=== PATIENT | female | born 1970 | race Caucasian/White ===

== ENCOUNTER 2017-12-13 14:51 | Emergency (ER) | payer OTHER ==
[~2017-12-13] VITALS: Ht 170.2 cm; Wt 47.2 kg
[~2017-12-13 14:51] MED LIST: Ativan0.5 MG PO; BIRTH CONTROL PILLS; CIPR500 PO; CYCL10 PO; FAMO20 PO; HYDACE5 PO; IBUP400 PO; IBUPROFEN; NAPR375 PO; OXYACE5T PO; PHENA200; PHENA200 PO; POTCHL20ER PO; PRED10 PO; PROM25 PO; TRAM50 PO
[2017-12-13] MEDS ORDERED: Cyclobenzaprine5 MG PO (15:05)
[2017-12-13] MEDS ORDERED: Norco 5-325 Ta1 EACH PO (15:59)
== END 2017-12-13 16:08 | disposition home or self-care (01) ==
LOC: ER 14:51
DX: S70.12XA Contusion of left thigh, initial encounter (principal); Z88.0 Allergy status to penicillin; Z88.2 Allergy status to sulfonamides; Z88.8 Allergy status to other drugs, medicaments and biological substances; F17.210 Nicotine dependence, cigarettes, uncomplicated; W01.0XXA Fall on same level from slipping, tripping and stumbling without subsequent striking against object, initial encounter
CPT/HCPCS: 73552; 99283

== ENCOUNTER → 2019-04-05 | Outpatient (CLI) | payer OTHER ==
[~2019-04-05] MED LIST changes: +Cyclobenzaprine5 MG PO; +Norco 5-325 Ta1 EACH PO
[2019-04-06 11:14] LABS: Candida species (DNA Probe) Negative (NEGATIVE); G. vaginalis (DNA Probe) Positive (NEGATIVE); T. vaginalis (DNA Probe) Negative (NEGATIVE)
== END ==
LOC: LAB SHORT 17:12 → LAB 17:12
PROVIDERS: Nurse Practitioner Family
DX: B37.9 Candidiasis, unspecified (principal)
CPT/HCPCS: 87480; 87510; 87660

== ENCOUNTER 2019-09-09 09:07 | Day surgery (SDC) | payer OTHER ==
[~2019-09-09] VITALS: Ht 170.2 cm; Wt 45.2 kg
== END 2019-09-09 11:05 | disposition home or self-care (01) ==
LOC: ORSCSDS 09:07
PROVIDERS: Surgery
PROC: 0DBN8ZX Excision of Sigmoid Colon, Via Natural or Artificial Opening Endoscopic, Diagnostic (ICD-10-PCS; principal; 2019-09-09 11:00)
DX: K62.5 Hemorrhage of anus and rectum (principal); K63.5 Polyp of colon; K64.2 Third degree hemorrhoids; K21.9 Gastro-esophageal reflux disease without esophagitis; F17.210 Nicotine dependence, cigarettes, uncomplicated
CPT/HCPCS: 88305; J2704; J7120

== ENCOUNTER 2019-09-21 13:01 | Emergency (ER) | payer OTHER ==
[~2019-09-21] VITALS: Ht 170.2 cm; Wt 47.2 kg
[2019-09-21] MEDS ORDERED: Norco 5-325 Ta1 EACH PO (14:36)
== END 2019-09-21 15:14 | disposition home or self-care (01) ==
LOC: ER 13:01
DX: S20.221A Contusion of right back wall of thorax, initial encounter (principal); F17.200 Nicotine dependence, unspecified, uncomplicated; Z88.0 Allergy status to penicillin; Z88.2 Allergy status to sulfonamides; Z88.8 Allergy status to other drugs, medicaments and biological substances; W18.39XA Other fall on same level, initial encounter
CPT/HCPCS: 71101; 99283-25

== ENCOUNTER 2019-12-12 16:22 | Emergency (ER) | payer OTHER ==
[~2019-12-12] VITALS: Ht 170.2 cm; Wt 49.9 kg
[2019-12-12 16:47] LABS: BASOPHILS ABSOLUTE AUTO 0.05 K/mm3 (0.00-0.23); BASOPHILS PERCENT AUTO 1 % (0-2); EOSINOPHILS ABSOLUTE AUTO 0.19 K/mm3 (0.00-0.68); EOSINOPHILS PERCENT AUTO 3 % (0-6); Hematocrit 38.6 % (33.0-51.0); Hemoglobin 12.9 g/dL (11.5-16.0); IMMATURE GRAN ABSOLUTE AUTO 0.01 K/mm3 (0.00-0.10); IMMATURE GRAN PERCENT AUTO 0 % (0-1); LYMPHOCYTES ABSOLUTE AUTO 2.89 K/mm3 (0.84-5.20); LYMPHOCYTES PERCENT AUTO 42 % (21-46); MONOCYTES ABSOLUTE AUTO 0.39 K/mm3 (0.16-1.47); MONOCYTES PERCENT AUTO 6 % (4-13); Mean Corpuscular HGB 30.8 pg (26.0-34.0); Mean Corpuscular HGB Conc 33.4 g/dL (31.5-36.5); Mean Corpuscular Volume 92 fL (80-100); Mean Platelet Volume 8.9 fL (9.1-12.4); NEUTROPHILS ABSOLUTE AUTO 3.38 K/mm3 (1.96-9.15); NEUTROPHILS PERCENT AUTO 49 % (41-73); Platelet Count 339 K/mm3 (150-400); RDW Coefficient Variation 13.1 % (11.7-14.2); RDW Standard Deviation 44.2 fL (35.1-46.3); Red Blood Cell Count 4.19 M/mm3 (3.80-5.20); White Blood Cell Count 6.91 K/mm3 (4.00-11.30)
[2019-12-12 17:10] LABS: Alanine Aminotransfer (ALT/SGP 35 U/L (12-78); Albumin, Blood 4.3 g/dL (3.4-5.0); Albumin/Globulin Ratio 1.1 (0.8-1.8); Alk Phos 49 U/L (50-136); Anion Gap 6 mmol/L (6-16); Aspartate Aminotrans (AST/SGOT 27 U/L (12-37); Bilirubin, Total 0.2 mg/dL (0.1-1.0); Blood Urea Nitrogen 12 mg/dL (8-24); Bun/Creatinine Ratio 35.6 (12.0-20.0); CO2, Blood 25 mmol/L (21-32); Calcium, Blood 8.8 mg/dL (8.5-10.1); Chloride, Blood 109 mmol/L (98-108); Creatinine, Blood 0.34 mg/dL (0.40-1.00); Ethanol (Alcohol), Blood, Med 355 mg/dL; Globulin, Blood 3.9 g/dL (2.2-4.0); Glomerular Filtration Rate >60 (60-); Glucose, Blood 102 mg/dL (70-99); Potassium, Blood 3.7 mmol/L (3.5-5.5); Sodium, Blood 140 mmol/L (136-145); Total Protein, Blood 8.2 g/dL (6.4-8.2); Troponin I <0.015 ng/mL (0.000-0.040)
== END 2019-12-12 19:26 | disposition home or self-care (01) ==
LOC: ER 16:22
PROVIDERS: Physician Assistant
DX: R00.2 Palpitations (principal); F10.129 Alcohol abuse with intoxication, unspecified; F17.210 Nicotine dependence, cigarettes, uncomplicated; Z88.0 Allergy status to penicillin; Z88.8 Allergy status to other drugs, medicaments and biological substances; Z88.2 Allergy status to sulfonamides; Y90.8 Blood alcohol level of 240 mg/100 ml or more
CPT/HCPCS: 36415; 71046; 80053; 84484; 85025; 93005; 93010; 96360; 99284-25; G0480; J7030

== ENCOUNTER 2020-02-03 20:26 | Emergency (ER) | payer OTHER ==
[~2020-02-03] VITALS: Ht 170.2 cm; Wt 49.9 kg
[2020-02-03] MEDS ORDERED: METO25ER PO (20:58)
[2020-02-03 21:12] LABS: BASOPHILS ABSOLUTE AUTO 0.06 K/mm3 (0.00-0.23); BASOPHILS PERCENT AUTO 1 % (0-2); EOSINOPHILS ABSOLUTE AUTO 0.14 K/mm3 (0.00-0.68); EOSINOPHILS PERCENT AUTO 2 % (0-6); Hematocrit 39.3 % (33.0-51.0); Hemoglobin 12.8 g/dL (11.5-16.0); IMMATURE GRAN ABSOLUTE AUTO 0.02 K/mm3 (0.00-0.10); IMMATURE GRAN PERCENT AUTO 0 % (0-1); LYMPHOCYTES ABSOLUTE AUTO 3.47 K/mm3 (0.84-5.20); LYMPHOCYTES PERCENT AUTO 39 % (21-46); MONOCYTES ABSOLUTE AUTO 0.53 K/mm3 (0.16-1.47); MONOCYTES PERCENT AUTO 6 % (4-13); Mean Corpuscular HGB 30.3 pg (26.0-34.0); Mean Corpuscular HGB Conc 32.6 g/dL (31.5-36.5); Mean Corpuscular Volume 93 fL (80-100); NEUTROPHILS PERCENT AUTO 53 % (41-73); Platelet Count 342 K/mm3 (150-400); RDW Coefficient Variation 12.8 % (11.7-14.2); RDW Standard Deviation 43.7 fL (35.1-46.3); Red Blood Cell Count 4.22 M/mm3 (3.80-5.20); White Blood Cell Count 8.92 K/mm3 (4.00-11.30)
[2020-02-03 21:22] LABS: Alanine Aminotransfer (ALT/SGP 40 U/L (12-78); Albumin, Blood 4.2 g/dL (3.4-5.0); Alk Phos 44 U/L (50-136); Anion Gap 6 mmol/L (6-16); Aspartate Aminotrans (AST/SGOT 33 U/L (12-37); Bilirubin, Total 0.2 mg/dL (0.1-1.0); Blood Urea Nitrogen 8 mg/dL (8-24); Bun/Creatinine Ratio 18.3 (12.0-20.0); CO2, Blood 26 mmol/L (21-32); Calcium, Blood 9.2 mg/dL (8.5-10.1); Chloride, Blood 110 mmol/L (98-108); Creatinine, Blood 0.44 mg/dL (0.40-1.00); Globulin, Blood 4.2 g/dL (2.2-4.0); Glomerular Filtration Rate >60 (60-); Glucose, Blood 86 mg/dL (70-99); Potassium, Blood 3.4 mmol/L (3.5-5.5); Sodium, Blood 142 mmol/L (136-145); Total Protein, Blood 8.4 g/dL (6.4-8.2); Troponin I <0.015 ng/mL (0.000-0.040)
== END 2020-02-03 22:30 | disposition home or self-care (01) ==
LOC: ER 20:26
PROVIDERS: Nurse Practitioner
DX: R00.2 Palpitations (principal); F10.129 Alcohol abuse with intoxication, unspecified; Y90.8 Blood alcohol level of 240 mg/100 ml or more; Z88.0 Allergy status to penicillin; Z88.2 Allergy status to sulfonamides; Z88.8 Allergy status to other drugs, medicaments and biological substances; F17.210 Nicotine dependence, cigarettes, uncomplicated
CPT/HCPCS: 36415; 71046; 80053; 84484; 85025; 93005; 93010; 96374; 99285-25; G0480; J2405

== ENCOUNTER 2020-04-15 11:41 | Emergency (ER) | payer OTHER ==
[~2020-04-15] VITALS: Ht 170.2 cm; Wt 47.2 kg
[~2020-04-15 11:41] MED LIST changes: +METO25ER PO
[2020-04-15 12:16] LABS: BASOPHILS ABSOLUTE AUTO 0.06 K/mm3 (0.00-0.23); BASOPHILS PERCENT AUTO 1 % (0-2); EOSINOPHILS ABSOLUTE AUTO 0.24 K/mm3 (0.00-0.68); EOSINOPHILS PERCENT AUTO 3 % (0-6); Hematocrit 41.5 % (33.0-51.0); Hemoglobin 13.8 g/dL (11.5-16.0); IMMATURE GRAN ABSOLUTE AUTO 0.02 K/mm3 (0.00-0.10); IMMATURE GRAN PERCENT AUTO 0 % (0-1); LYMPHOCYTES ABSOLUTE AUTO 3.47 K/mm3 (0.84-5.20); LYMPHOCYTES PERCENT AUTO 41 % (21-46); MONOCYTES ABSOLUTE AUTO 0.43 K/mm3 (0.16-1.47); MONOCYTES PERCENT AUTO 5 % (4-13); Mean Corpuscular HGB 30.5 pg (26.0-34.0); Mean Corpuscular HGB Conc 33.3 g/dL (31.5-36.5); Mean Corpuscular Volume 92 fL (80-100); Mean Platelet Volume 8.9 fL (9.1-12.4); NEUTROPHILS ABSOLUTE AUTO 4.25 K/mm3 (1.96-9.15); NEUTROPHILS PERCENT AUTO 50 % (41-73); Platelet Count 352 K/mm3 (150-400); RDW Coefficient Variation 13.1 % (11.7-14.2); RDW Standard Deviation 44.1 fL (35.1-46.3); Red Blood Cell Count 4.53 M/mm3 (3.80-5.20); White Blood Cell Count 8.47 K/mm3 (4.00-11.30)
[2020-04-15 12:31] LABS: Alanine Aminotransfer (ALT/SGP 41 U/L (12-78); Albumin, Blood 4.1 g/dL (3.4-5.0); Alk Phos 49 U/L (50-136); Anion Gap 4 mmol/L (6-16); Aspartate Aminotrans (AST/SGOT 33 U/L (12-37); Bilirubin, Total 0.3 mg/dL (0.1-1.0); Blood Urea Nitrogen 11 mg/dL (8-24); Bun/Creatinine Ratio 24.6 (12.0-20.0); CO2, Blood 28 mmol/L (21-32); Calcium, Blood 8.5 mg/dL (8.5-10.1); Chloride, Blood 109 mmol/L (98-108); Creatinine, Blood 0.45 mg/dL (0.40-1.00); Globulin, Blood 4.2 g/dL (2.2-4.0); Glomerular Filtration Rate >60 (60-); Glucose, Blood 102 mg/dL (70-99); Potassium, Blood 3.9 mmol/L (3.5-5.5); Sodium, Blood 141 mmol/L (136-145); Total Protein, Blood 8.3 g/dL (6.4-8.2); Troponin I <0.015 ng/mL (0.000-0.040)
[2020-04-15 13:05] LABS: U Amphetamine Screen Not Detected; U Barbituate Screen Not Detected; U Benzodiazapine Screen Not Detected; U Buprenorphine Screen Not Detected; U Cannabinoids Screen Not Detected; U Cocaine Screen Not Detected; U Methadone Screen Not Detected; U Methamphetamine Screen Not Detected; U Opiates Screen Not Detected; U Oxycodone Screen Not Detected; U Phencyclidine Screen Not Detected; U Propoxyphene Screen Not Detected
== END 2020-04-15 13:30 | disposition home or self-care (01) ==
LOC: ER 11:41
PROVIDERS: Emergency Medicine
DX: R00.2 Palpitations (principal); F17.210 Nicotine dependence, cigarettes, uncomplicated; Z88.0 Allergy status to penicillin; Z88.2 Allergy status to sulfonamides; Z88.8 Allergy status to other drugs, medicaments and biological substances; Z79.899 Other long term (current) drug therapy
CPT/HCPCS: 36415; 71045; 80053; 83880; 84443; 84484; 85025; 93005; 93010; 99285-25

== ENCOUNTER → 2021-08-29 | Outpatient (CLI) | payer OTHER ==
[2021-08-29 17:55] LABS: Source, Urine Voided
[2021-08-29 19:08] LABS: White Blood Cells, Urine 0-2 /hpf (0-5)
[2021-08-29 19:09] LABS: Bacteria Few /hpf; Squamous Epithelial Cells Few /hpf (Few); Transitional Epithelial Cells Rare /hpf (0-Rare)
== END ==
LOC: LAB 17:52 → LAB SHORT 17:52
PROVIDERS: Family Medicine
DX: R61 Generalized hyperhidrosis (principal)
CPT/HCPCS: 81015

== ENCOUNTER → 2021-09-03 | Outpatient (CLI) | payer OTHER ==
[2021-09-04 10:22] LABS: Stool Occult Bld Immuno 1 Negative (NEGATIVE)
== END | disposition home or self-care (01) ==
LOC: LAB SHORT 18:08 → LAB 18:08
PROVIDERS: Family Medicine
DX: Z12.11 Encounter for screening for malignant neoplasm of colon (principal)
CPT/HCPCS: G0328

== ENCOUNTER → 2022-03-22 | Outpatient (CLI) | payer OTHER | END | disposition home or self-care (01) | LOC: LAB 15:10 → LAB SHORT 15:10 | DX: R30.9 Painful micturition, unspecified (principal) | CPT/HCPCS: 87077; 87086; 87186 ==

== ENCOUNTER 2022-09-03 01:07 | Emergency (ER) | payer OTHER ==
[~2022-09-03] VITALS: Ht 154.9 cm; Wt 54.4 kg
[2022-09-03 01:55] LABS: BASOPHILS ABSOLUTE AUTO 0.04 K/mm3 (0.00-0.23); BASOPHILS PERCENT AUTO 1 % (0-2); EOSINOPHILS ABSOLUTE AUTO 0.07 K/mm3 (0.00-0.68); EOSINOPHILS PERCENT AUTO 2 % (0-6); Hematocrit 32.5 % (33.0-51.0); Hemoglobin 11.1 g/dL (11.5-16.0); IMMATURE GRAN ABSOLUTE AUTO 0.02 K/mm3 (0.00-0.10); IMMATURE GRAN PERCENT AUTO 0 % (0-1); LYMPHOCYTES ABSOLUTE AUTO 2.01 K/mm3 (0.84-5.20); LYMPHOCYTES PERCENT AUTO 45 % (21-46); MONOCYTES ABSOLUTE AUTO 0.37 K/mm3 (0.16-1.47); MONOCYTES PERCENT AUTO 8 % (4-13); Mean Corpuscular HGB Conc 34.2 g/dL (31.5-36.5); Mean Corpuscular Volume 97 fL (80-100); Mean Platelet Volume 9.1 fL (9.1-12.4); NEUTROPHILS ABSOLUTE AUTO 1.95 K/mm3 (1.96-9.15); NEUTROPHILS PERCENT AUTO 44 % (41-73); Platelet Count 180 K/mm3 (150-400); RDW Coefficient Variation 13.9 % (11.7-14.2); RDW Standard Deviation 49.2 fL (35.1-46.3); Red Blood Cell Count 3.36 M/mm3 (3.80-5.20); White Blood Cell Count 4.46 K/mm3 (4.00-11.30)
[2022-09-03 02:08] LABS: Albumin, Blood 4.2 g/dL (3.4-5.0); Albumin/Globulin Ratio 1.1 (0.8-1.8); Bilirubin, Total 0.3 mg/dL (0.1-1.0); Bun/Creatinine Ratio 25.1 (12.0-20.0); Calcium, Blood 8.6 mg/dL (8.5-10.1); Creatinine, Blood 0.4 mg/dL (0.40-1.00); Globulin, Blood 3.7 g/dL (2.2-4.0); Potassium, Blood 3.4 mmol/L (3.5-5.5); Total Protein, Blood 7.9 g/dL (6.4-8.2)
== END 2022-09-03 04:32 | disposition home or self-care (01) ==
LOC: ER 01:07
PROVIDERS: Emergency Medicine
DX: I49.1 Atrial premature depolarization (principal); Z53.21 Procedure and treatment not carried out due to patient leaving prior to being seen by health care provider
CPT/HCPCS: 80053; 84484; 85025; 93005; 93010

== ENCOUNTER 2023-03-14 16:00 | Observation (INO) | payer OTHER ==
[~2023-03-14] VITALS: Ht 170.2 cm; Wt 449.1 kg
[2023-03-14] MEDS ORDERED: Cyclobenzaprine5 MG PO (16:08)
[2023-03-14] MEDS ORDERED: METOPROLOL SUCC25 MG PO (16:08)
[2023-03-14] MEDS ORDERED: FLUO10 PO (16:09)
[2023-03-14 16:27] LABS: BASOPHILS ABSOLUTE AUTO 0.06 K/mm3 (0.00-0.23); BASOPHILS PERCENT AUTO 1 % (0-2); EOSINOPHILS ABSOLUTE AUTO 0.02 K/mm3 (0.00-0.68); EOSINOPHILS PERCENT AUTO 0 % (0-6); Hematocrit 33.9 % (33.0-51.0); Hemoglobin 11.4 g/dL (11.5-16.0); IMMATURE GRAN ABSOLUTE AUTO 0.01 K/mm3 (0.00-0.10); IMMATURE GRAN PERCENT AUTO 0 % (0-1); LYMPHOCYTES ABSOLUTE AUTO 1.93 K/mm3 (0.84-5.20); LYMPHOCYTES PERCENT AUTO 28 % (21-46); MONOCYTES ABSOLUTE AUTO 0.38 K/mm3 (0.16-1.47); MONOCYTES PERCENT AUTO 5 % (4-13); Mean Corpuscular HGB 31.2 pg (26.0-34.0); Mean Corpuscular HGB Conc 33.6 g/dL (31.5-36.5); Mean Corpuscular Volume 93 fL (80-100); NEUTROPHILS ABSOLUTE AUTO 4.63 K/mm3 (1.96-9.15); NEUTROPHILS PERCENT AUTO 66 % (41-73); Platelet Count 259 K/mm3 (150-400); RDW Coefficient Variation 13.9 % (11.7-14.2); RDW Standard Deviation 47.5 fL (35.1-46.3); Red Blood Cell Count 3.65 M/mm3 (3.80-5.20); White Blood Cell Count 7.03 K/mm3 (4.00-11.30)
[2023-03-14 16:48] LABS: Albumin, Blood 4.2 g/dL (3.4-5.0); Albumin/Globulin Ratio 1.1 (0.8-1.8); Bilirubin, Total 0.2 mg/dL (0.1-1.0); Bun/Creatinine Ratio 40.2 (12.0-20.0); Creatinine, Blood 0.42 mg/dL (0.40-1.00); Globulin, Blood 3.7 g/dL (2.2-4.0); Potassium, Blood 3.1 mmol/L (3.5-5.5); Total Protein, Blood 7.9 g/dL (6.4-8.2)
[2023-03-14 20:53] LABS: Thyroid Stimulating Hormone 0.323 uIU/mL (0.360-4.800)
[2023-03-14 21:57] VITALS: BP 139/95
[2023-03-15 05:26] VITALS: BP 131/89
--- NOTE | 2023-03-15 05:46 | NUR ---
PT RESTED IN BED THEN ABOUT 0300 RT HAD COME TO GIVE PT A RT TX. PT HAD STATED SHE HAD CHEST PAIN. PT TOLD THIS NURSE IT WAS NOT PAIN BUT PREASUR, NOT RADIATING TO ARMS , JAW OR BACK. PT SAID IT WAS LIKE WHAT HAPPENED BE FOR. PTS VITALS GOOD PT DECLINED NITRO. PT GIEN MUSCLE RELAXER AND TOLD IF ANFDY CHANGE INCREASE OR IF PREASURE CAHNGED OR MOVED TO CALL RIGHT AWAY, PT VU AND STATED SHE WOULD CALL IF ANY TYPE OF CHANGE. CALL LIGHT IN REACH.
[2023-03-15 06:37] LABS: BASOPHILS ABSOLUTE AUTO 0.04 K/mm3 (0.00-0.23); BASOPHILS PERCENT AUTO 1 % (0-2); EOSINOPHILS ABSOLUTE AUTO 0.06 K/mm3 (0.00-0.68); EOSINOPHILS PERCENT AUTO 1 % (0-6); Hematocrit 33.1 % (33.0-51.0); Hemoglobin 11.3 g/dL (11.5-16.0); IMMATURE GRAN ABSOLUTE AUTO 0.02 K/mm3 (0.00-0.10); IMMATURE GRAN PERCENT AUTO 0 % (0-1); LYMPHOCYTES ABSOLUTE AUTO 1.66 K/mm3 (0.84-5.20); LYMPHOCYTES PERCENT AUTO 33 % (21-46); MONOCYTES ABSOLUTE AUTO 0.48 K/mm3 (0.16-1.47); MONOCYTES PERCENT AUTO 10 % (4-13); Mean Corpuscular HGB 31.4 pg (26.0-34.0); Mean Corpuscular HGB Conc 34.1 g/dL (31.5-36.5); Mean Corpuscular Volume 92 fL (80-100); Mean Platelet Volume 9.7 fL (9.1-12.4); NEUTROPHILS ABSOLUTE AUTO 2.74 K/mm3 (1.96-9.15); NEUTROPHILS PERCENT AUTO 55 % (41-73); Platelet Count 212 K/mm3 (150-400); RDW Coefficient Variation 13.5 % (11.7-14.2); RDW Standard Deviation 45.9 fL (35.1-46.3)
--- NOTE | 2023-03-15 06:38 | NUR ---
error made in charting skin assesment, it was done with Fide Sierra.
[2023-03-15 07:05] LABS: Albumin, Blood 3.8 g/dL (3.4-5.0); Albumin/Globulin Ratio 1.2 (0.8-1.8); Bilirubin, Total 0.5 mg/dL (0.1-1.0); Calcium, Blood 8.6 mg/dL (8.5-10.1); Creatinine, Blood 0.46 mg/dL (0.40-1.00); Globulin, Blood 3.3 g/dL (2.2-4.0); Magnesium, Blood 1.3 mg/dL (1.6-2.4); Total Protein, Blood 7.1 g/dL (6.4-8.2)
[2023-03-15 07:31] VITALS: BP 135/88
--- NOTE | 2023-03-15 08:15 | NUR ---
SPOKE TO DR LANGLEY. NO TELE ORDER. DISCUSSED LABS. DR SINGER WILL REVIEW. NO NEW ORDERS.
--- NOTE | 2023-03-15 12:39 | NUR ---
0800 PT PLECHANTEL SUEROOP A/O X3. DENIES CHEST PAIN, BUT ADMITS PRESSURE/TIGHTNESS. PLACED 5/10 IN AMT. IS PRESENTLY ON HOME MONITORING OF HEART. NO TELE. VSS. HR REG, NO MURMUR NOTED. NO EDEMA. LUNGS CLEAR, RESP EASEY, UNLABORED. ON RA. BT X4 LAST BM YEST. PER PT. VOIDS INDEPENDANT IN ROOM. CALLED DR LANGLEY, LABS AND NO TELE. DR TO REVIEW AND ADVISE IF NEEDED.
--- NOTE | 2023-03-15 12:43 | NUR ---
DISCHARGE REVIEWD WITH PT AND DAUGHTER. PT VERBALIZED UNDERSTANDING MEDS AND INST AND F/UP. IV PULL INTACT BY AIDE. NO TELE. PT WHEELED TO DOOR AT 1243
== END 2023-03-15 12:42 | disposition home or self-care (01) ==
LOC: ER 16:00 → MEDS 16:01 → ENPENDDIS 03-15 09:41 → MEDS 03-15 12:42
PROVIDERS: Family Medicine; Physician Assistant; ADMIT Internal Medicine
DX: R07.89 Other chest pain (principal); I42.6 Alcoholic cardiomyopathy; F41.9 Anxiety disorder, unspecified; J44.9 Chronic obstructive pulmonary disease, unspecified; E87.6 Hypokalemia; E83.42 Hypomagnesemia; Z88.0 Allergy status to penicillin; Z88.2 Allergy status to sulfonamides; Z88.8 Allergy status to other drugs, medicaments and biological substances; F17.210 Nicotine dependence, cigarettes, uncomplicated; F32.A Depression, unspecified
CPT/HCPCS: 36415; 71046; 80053; 83735; 83880; 84443; 84484; 85025; 93005; 93010; 94640; 94664; 94760; 96372; 99285-25; A9270; G0378; J1650

== ENCOUNTER → 2023-06-12 | Outpatient (CLI) | payer OTHER ==
[~2023-06-12] MED LIST changes: +FLUO10 PO; +METOPROLOL SUCC25 MG PO
== END ==
LOC: LAB SHORT 17:22 → LAB 17:22
DX: R30.0 Dysuria (principal)
CPT/HCPCS: 87077; 87086; 87186

== ENCOUNTER → 2023-07-17 | Outpatient (CLI) | payer OTHER ==
[2023-07-17 16:27] LABS: Appearance, Urine Clear (Clear); Bilirubin, Urine Neg (Neg); Blood, Urine 1+ (Neg); Color, Urine Yellow (P-Yellow); Glucose Qualitative, Urine Neg (Neg); Ketones, Urine Neg (Neg); Leukocyte Esterase, Urine 1+ (Neg); Nitrite, Urine Neg (Neg); Protein, Urine 1+ (Neg); Urobilinogen, Urine NORM (Normal)
[2023-07-17 16:40] LABS: Bacteria Mod /hpf; Mucus Light (0-Heavy); Squamous Epithelial Cells Few /hpf (Few)
== END | disposition home or self-care (01) ==
LOC: LAB 12:20 → LAB SHORT 12:20
PROVIDERS: Family Medicine
DX: N02.9 Recurrent and persistent hematuria with unspecified morphologic changes (principal)
CPT/HCPCS: 81001

== ENCOUNTER 2024-06-21 00:07 | Emergency (ER) | payer OTHER ==
[~2024-06-21] VITALS: Ht 170.2 cm; Wt 48.5 kg
[2024-06-21] MEDS ORDERED: Ketorolac Tromethamine 30mg Vial IV ONE (01:20)
[2024-06-21] MEDS ORDERED: FentaNYL Citrate 50 MCG/ML 2 ML Injection IV ONE (01:20)
[2024-06-21] MEDS ORDERED: RX Prepack 6 Tabs Oxycodone 5mg UD ONE (03:00)
[2024-06-21] MEDS ORDERED: RX Prepack 2 Tabs Ondansetron ODT 4MG UD ONE (03:10)
[2024-06-21] MEDS ORDERED: IBUP400 PO (03:12)
[2024-06-21] MEDS ORDERED: ACET500 PO (03:12)
[2024-06-21] MEDS ORDERED: OXYC5 PO (03:12)
[2024-06-21] MEDS ORDERED: ONDA4ODT MM (03:12)
[2024-06-21 03:20] VITALS: BP 110/75
== END 2024-06-21 03:24 | disposition home or self-care (01) ==
LOC: ER 00:07
DX: S52.502A Unspecified fracture of the lower end of left radius, initial encounter for closed fracture (principal); S09.90XA Unspecified injury of head, initial encounter; J44.9 Chronic obstructive pulmonary disease, unspecified; F17.210 Nicotine dependence, cigarettes, uncomplicated; W11.XXXA Fall on and from ladder, initial encounter; Z79.899 Other long term (current) drug therapy; Z88.0 Allergy status to penicillin; Z88.2 Allergy status to sulfonamides; Z88.8 Allergy status to other drugs, medicaments and biological substances
CPT/HCPCS: 29105; 70450; 72125; 73110; 96374-59; 96375-59; 99284-25; A9270; J1885; J3010

== ENCOUNTER → 2024-08-27 | Outpatient (CLI) | payer OTHER ==
[~2024-08-27] MED LIST changes: +ACET500 PO; +ONDA4ODT MM; +OXYC5 PO
[2024-08-27 19:33] LABS: BASOPHILS ABSOLUTE AUTO 0.05 K/mm3 (0.00-0.23); BASOPHILS PERCENT AUTO 0 % (0-2); EOSINOPHILS PERCENT AUTO 0 % (0-6); Hematocrit 36.8 % (33.0-51.0); Hemoglobin 12.7 g/dL (11.5-16.0); IMMATURE GRAN ABSOLUTE AUTO 0.03 K/mm3 (0.00-0.10); IMMATURE GRAN PERCENT AUTO 0 % (0-1); LYMPHOCYTES ABSOLUTE AUTO 1.21 K/mm3 (0.84-5.20); LYMPHOCYTES PERCENT AUTO 11 % (21-46); MONOCYTES ABSOLUTE AUTO 0.39 K/mm3 (0.16-1.47); MONOCYTES PERCENT AUTO 3 % (4-13); Mean Corpuscular HGB 32.3 pg (26.0-34.0); Mean Corpuscular HGB Conc 34.5 g/dL (31.5-36.5); Mean Corpuscular Volume 94 fL (80-100); Mean Platelet Volume 9.9 fL (9.1-12.4); NEUTROPHILS ABSOLUTE AUTO 9.75 K/mm3 (1.96-9.15); NEUTROPHILS PERCENT AUTO 85 % (41-73); Platelet Count 250 K/mm3 (150-400); RDW Coefficient Variation 13.2 % (11.7-14.2); RDW Standard Deviation 45.7 fL (35.1-46.3); Red Blood Cell Count 3.93 M/mm3 (3.80-5.20); White Blood Cell Count 11.43 K/mm3 (4.00-11.30)
[2024-08-27 20:23] LABS: Albumin, Blood 4.6 g/dL (3.4-5.0); Albumin/Globulin Ratio 1.2 (0.8-1.8); Bilirubin, Total 0.8 mg/dL (0.1-1.0); Bun/Creatinine Ratio 29.9 (12.0-20.0); Calcium, Blood 9.4 mg/dL (8.5-10.1); Creatinine, Blood 0.4 mg/dL (0.40-1.00); Globulin, Blood 3.7 g/dL (2.2-4.0); Potassium, Blood 3.3 mmol/L (3.5-5.5); Total Protein, Blood 8.3 g/dL (6.4-8.2)
[2024-08-27 20:30] LABS: Magnesium, Blood 1.1 mg/dL (1.6-2.4)
== END ==
LOC: LAB SHORT 19:22 → LAB 19:22
PROVIDERS: Family Medicine
DX: R25.2 Cramp and spasm (principal)
CPT/HCPCS: 80053; 83735; 85025

== ENCOUNTER 2024-10-07 13:47 | Inpatient (IN) | payer OTHER ==
[~2024-10-07] VITALS: Ht 170.2 cm; Wt 52.5 kg
[~2024-10-07 13:47] MED LIST changes: -FLUO10 PO; +FLUOXETINE HCL20 M1 PO
[2024-10-07] MEDS ORDERED: LORazepam 2 MG/ML 1ML Injection IV ONE ×3 (14:20→15:25)
[2024-10-07 14:22] LABS: BASOPHILS ABSOLUTE AUTO 0.03 K/mm3 (0.00-0.23); BASOPHILS PERCENT AUTO 1 % (0-2); EOSINOPHILS ABSOLUTE AUTO 0.06 K/mm3 (0.00-0.68); EOSINOPHILS PERCENT AUTO 1 % (0-6); Hematocrit 29.3 % (33.0-51.0); Hemoglobin 9.9 g/dL (11.5-16.0); IMMATURE GRAN ABSOLUTE AUTO 0.03 K/mm3 (0.00-0.10); IMMATURE GRAN PERCENT AUTO 1 % (0-1); LYMPHOCYTES ABSOLUTE AUTO 1.05 K/mm3 (0.84-5.20); LYMPHOCYTES PERCENT AUTO 16 % (21-46); MONOCYTES PERCENT AUTO 8 % (4-13); Mean Corpuscular HGB 33.6 pg (26.0-34.0); Mean Corpuscular HGB Conc 33.8 g/dL (31.5-36.5); Mean Corpuscular Volume 99 fL (80-100); Mean Platelet Volume 9.8 fL (9.1-12.4); NEUTROPHILS ABSOLUTE AUTO 4.72 K/mm3 (1.96-9.15); NEUTROPHILS PERCENT AUTO 74 % (41-73); Platelet Count 183 K/mm3 (150-400); RDW Coefficient Variation 12.7 % (11.7-14.2); RDW Standard Deviation 46.5 fL (35.1-46.3); Red Blood Cell Count 2.95 M/mm3 (3.80-5.20); White Blood Cell Count 6.39 K/mm3 (4.00-11.30)
[2024-10-07 14:35] LABS: Alanine Aminotransfer (ALT/SGP 44 U/L (12-78); Albumin, Blood 3.5 g/dL (3.4-5.0); Alk Phos 33 U/L (50-136); Anion Gap 9 mmol/L (3-11); Aspartate Aminotrans (AST/SGOT 34 U/L (12-37); Bilirubin, Total 0.3 mg/dL (0.1-1.0); Blood Urea Nitrogen 11 mg/dL (8-24); Bun/Creatinine Ratio 26.3 (12.0-20.0); CO2, Blood 26 mmol/L (21-32); Calcium, Blood 8.1 mg/dL (8.5-10.1); Chloride, Blood 108 mmol/L (98-108); Creatinine, Blood 0.42 mg/dL (0.40-1.00); Ethanol (Alcohol), Blood, Med <3 mg/dL; Globulin, Blood 3.4 g/dL (2.2-4.0); Glomerular Filtration Rate 117 (60-); Glucose, Blood 107 mg/dL (70-99); Potassium, Blood 3.4 mmol/L (3.5-5.5); Sodium, Blood 140 mmol/L (136-145); Total Protein, Blood 6.9 g/dL (6.4-8.2)
[2024-10-07] MEDS ORDERED: LORazepam 2 MG/ML 1ML Injection IV PRN (16:20)
[2024-10-07] MEDS ORDERED: FLU VACC TS2024-25(6MOS UP)/PF 45 MCG/0.5 ML SYRINGE IM SCH (16:20)
[2024-10-07] MEDS ORDERED: Ondansetron HCl 2 MG / ML 2ML Vial IV PRN (16:20)
[2024-10-07] MEDS ORDERED: NS 1,000 ML IV SCH (16:25)
[2024-10-07] MEDS ORDERED: ChlordiazePOXIDE 25 MG Cap PO PRN (16:25)
[2024-10-07] MEDS ORDERED: Potassium Chloride 20 MEQ TabCR PO ONE (16:25)
[2024-10-07] MEDS ORDERED: Thiamine HCl 100 MG in NS 50 ML IV SCH (17:00)
[2024-10-07] MEDS ORDERED: Folic Acid 1 MG in NS 50 ML IV SCH (17:00)
[2024-10-07] MEDS ORDERED: NS KCl 20mEq 1,000 ML IV SCH (19:25)
[2024-10-07 19:38] LABS: Source, Urine Clean Catch
[2024-10-07 19:43] LABS: Appearance, Urine Clear (Clear); Bilirubin, Urine Neg (Neg); Blood, Urine Neg (Neg); Color, Urine Pale Yellow (P-Yellow); Glucose Qualitative, Urine Neg (Neg); Ketones, Urine Neg (Neg); Leukocyte Esterase, Urine Neg (Neg); Nitrite, Urine Neg (Neg); Protein, Urine Neg (Neg); Specific Gravity, Urine 1.005 (1.003-1.022); Urobilinogen, Urine NORM (Normal)
[2024-10-07 19:55] LABS: U Amphetamine Screen Not Detected; U Barbituate Screen Not Detected; U Benzodiazapine Screen DETECTED; U Buprenorphine Screen Not Detected; U Cannabinoids Screen Not Detected; U Cocaine Screen Not Detected; U Methadone Screen Not Detected; U Methamphetamine Screen Not Detected; U Opiates Screen Not Detected; U Oxycodone Screen Not Detected; U Phencyclidine Screen Not Detected
[2024-10-07] MEDS ORDERED: dexmedeTOMIDine 100 ML IV SCH (20:10)
[2024-10-07 21:00] VITALS: BP 153/112
[2024-10-07 21:30] VITALS: BP 121/88
--- NOTE | 2024-10-07 21:50 | NUR ---
ARRIVAL NOTE PT ARRIVED TO ICU ROOM 3 AT 2132 BROUGHT BY ER NURSE MINH. PT LYING ON BED SLEEPY BUT AROUSABLE AND CONFUSED, BRIEFLY AGITATED DURING BED TRANSFER ETC. SINUS THYTHM 63 AND BP OF 158/102 (120). PT SAT 95% ON RA. NO SIGNS OF SKIN ISSUES OF NOTE. R PIV LEAKING AND SO PRECEDEX 0.2 MCG/KG/HR AND NS WITH 20MEQ KCL 75ML/HR INFUSING INTO LEFT AC PIV. ASSESSMENT, HISTORY AND MED RECONCILIATION WILL BE ABBREVIATED GIVEN PATIENT SOMNOLENCE.
[2024-10-07 22:00] VITALS: BP 159/107
[2024-10-07 22:30] VITALS: BP 152/104
[2024-10-07 23:00] VITALS: BP 144/100
[2024-10-07 23:30] VITALS: BP 146/100
[2024-10-08] VITALS (37 sets, daily range): BP systolic 94–168; BP diastolic 62–118
[2024-10-08 03:30] LABS: Hematocrit 34.8 % (33.0-51.0); Hemoglobin 11.7 g/dL (11.5-16.0); Mean Corpuscular HGB 33.1 pg (26.0-34.0); Mean Corpuscular HGB Conc 33.6 g/dL (31.5-36.5); Mean Corpuscular Volume 99 fL (80-100); Platelet Count 198 K/mm3 (150-400); RDW Coefficient Variation 12.9 % (11.7-14.2); RDW Standard Deviation 46.6 fL (35.1-46.3); Red Blood Cell Count 3.53 M/mm3 (3.80-5.20); White Blood Cell Count 8.54 K/mm3 (4.00-11.30)
[2024-10-08 03:57] LABS: Bun/Creatinine Ratio 13.8 (12.0-20.0); Calcium, Blood 8.3 mg/dL (8.5-10.1); Creatinine, Blood 0.43 mg/dL (0.40-1.00); Potassium, Blood 3.5 mmol/L (3.5-5.5)
--- NOTE | 2024-10-08 06:02 | NUR ---
SHIFT SUMMARY PT LYING ON BED SLEEPY BUT AROUSABLE AND CONFUSED, OCCASIONALLY AGITATED WHEN AWAKE BUT FALLS ASLEEP QUICKLY. LESS AGITATED THAN 9 HOURS AGO. PRECEDEX INFUSING AT 0.2 MCG/KG/HR. SINUS THYTHM 6O AND BP OF 153/198 (114). 12.5 OF LOPRESSOR CAN BE SEEN ON PREVIOUS MED LISTS BUT PT IS UNABLE TO CLEARLY VERBALIZE WHETHER SHE HAS BEEN CURRENTLY TAKING IT. PT SAT 96% ON RA. NO CHEST PAIN/PRESSURE, SOB, ABDOMINAL PAIN, N/V. LAST CIWA SCORE 11. NO SIGNS OF SKIN ISSUES OF NOTE. NS WITH 20MEQ KCL 75ML/HR INFUSING INTO LEFT AC PIV, WITH PRECEDEX Y SITED BECAUSE OF SLOW INFUSION RATE. CALL LIGHT IS NEARBY BUT PT HAS NOT DEMONSTRATED ABILITY TO USE IT.
--- NOTE | 2024-10-08 07:30 | NUR ---
ASSUME CARE: BEDSIDE REPORT RECIEVED FROM LINDSAY HOLLINGSWORTH. PT ALERT TO VERBAL STIMULI, DROWSY, ORIENTED TO SELF, SITUATION AND TIME. PRECEDEX AT 0.3 MCG/KG/HR. VSS. PUREWICK IN PLACE. WILL UPDATE NEEDED.
[2024-10-08] MEDS ORDERED: NITROFURANTOIN5012 PO (07:31)
[2024-10-08] MEDS ORDERED: Enoxaparin 40 MG/0.4 ML SYR SC SCH (09:00)
[2024-10-08] MEDS ORDERED: Folic Acid 1 MG in NS 50 ML IV SCH (12:00)
[2024-10-08] MEDS ORDERED: Thiamine HCl 100 MG in NS 50 ML IV SCH (12:00)
--- NOTE | 2024-10-08 17:41 | NUR ---
SHIFT SUMMARY: PRECEDEX GTT WAS TURNED OFF THIS AM AT 0800. PT WAS ABLE TO GET UP TO BSC AND TO CHAIR UNTIL LUNCH WITH MINIMAL WITHDRAWAL SYMPTOMS. AFTER LUNCH PT BECAME INCREASINGLY AGITATED AND STARTED HAVING MORE WITHDRAWAL SYMPTOMS AND AGITATION. PT WAS TRYING TO HIDE A FORK AND BUTTER KNIFE ON HER PERSON STATING " SHE HAD TO PROTECT HERSELF." PT MEDICATED PER EMAR. PRECEDEX GTT RESTARTED AND CURRENTLY AT 0.7 MCG/KG/HR. SBP 150s-160s, MAP>65. CALLED REGARDING HER HIGH BPs, NEW ORDERS GIVEN SEE EMAR. MONITOR SHOWS SR RATE 60s. SPO2>95% ON RA. PUREWICK IN PLACE. BED ALARM ON AND CALL LIGHT IN REACH. WILL REPORT TO ONCOMING RN.
[2024-10-08] MEDS ORDERED: HydrALAZINE HCl 20 MG / ML 1ML Vial IV PRN (17:50)
--- NOTE | 2024-10-08 20:26 | NUR ---
THIS RN ASSUMED CARE OF PT AT 1900, THIS RN DROPPED THE PRECEDEX TO 0.6 FROM 0.7, PT STARTING WAKING UP, STILL A RASS OF -1. THE WAS ALERT TO SELF, FOLLOWING COMMANDS AND EASILY REDIRECTABLE, STILL CONFUSED OF THE SITUATION AND PLACE. PT HEART RATE IS IN SINUS RHYTHM 70-80s, BLOOD PRESSURE 90/60s, MAP >65, PT DENIES CHEST PAIN. PT IS ON ROOM AIR SATTING >95%, DENIES SHORTNESS OF BREATH, SOUNDS COURSE/RHONCHI/DIMINSHED. THIS RN DID GET A REPORT OF A BRACE ON LEFT WRIST FROM A PREVIOUS FRACTURE. NO OTHER INTERVENTIONS AT THIS TIME, WILL CHECK CIWA IF NECESSARY AND CONTINUE TITRATING DOWN PRECEDEX. PLAN OF CARE CONTINUED.
[2024-10-09] VITALS (19 sets, daily range): BP systolic 109–141; BP diastolic 74–105
[2024-10-09 03:24] LABS: BASOPHILS ABSOLUTE AUTO 0.03 K/mm3 (0.00-0.23); BASOPHILS PERCENT AUTO 1 % (0-2); EOSINOPHILS ABSOLUTE AUTO 0.09 K/mm3 (0.00-0.68); EOSINOPHILS PERCENT AUTO 2 % (0-6); Hematocrit 35.1 % (33.0-51.0); IMMATURE GRAN ABSOLUTE AUTO 0.02 K/mm3 (0.00-0.10); IMMATURE GRAN PERCENT AUTO 0 % (0-1); LYMPHOCYTES ABSOLUTE AUTO 1.28 K/mm3 (0.84-5.20); LYMPHOCYTES PERCENT AUTO 23 % (21-46); MONOCYTES ABSOLUTE AUTO 0.66 K/mm3 (0.16-1.47); MONOCYTES PERCENT AUTO 12 % (4-13); Mean Corpuscular HGB 32.5 pg (26.0-34.0); Mean Corpuscular HGB Conc 34.2 g/dL (31.5-36.5); Mean Corpuscular Volume 95 fL (80-100); Mean Platelet Volume 9.7 fL (9.1-12.4); NEUTROPHILS ABSOLUTE AUTO 3.59 K/mm3 (1.96-9.15); NEUTROPHILS PERCENT AUTO 63 % (41-73); Platelet Count 208 K/mm3 (150-400); RDW Coefficient Variation 12.8 % (11.7-14.2); RDW Standard Deviation 44.4 fL (35.1-46.3); Red Blood Cell Count 3.69 M/mm3 (3.80-5.20); White Blood Cell Count 5.67 K/mm3 (4.00-11.30)
[2024-10-09 03:48] LABS: Albumin, Blood 3.2 g/dL (3.4-5.0); Albumin/Globulin Ratio 0.9 (0.8-1.8); Bilirubin, Total 0.5 mg/dL (0.1-1.0); Bun/Creatinine Ratio 12.9 (12.0-20.0); Calcium, Blood 8.5 mg/dL (8.5-10.1); Creatinine, Blood 0.46 mg/dL (0.40-1.00); Globulin, Blood 3.6 g/dL (2.2-4.0); Potassium, Blood 3.2 mmol/L (3.5-5.5); Total Protein, Blood 6.8 g/dL (6.4-8.2)
--- NOTE | 2024-10-09 05:05 | NUR ---
PT SUMMARY PT IS LAYING IN BED, STILL AROUSES APPROPRIATLEY, PRECEDEX IS NOW AT 0.2, PT IS FOLLOWING COMMANDS. NO OTHER INTERVENTIONS AT THIS TIME. PLAN OF CARE CONTINUED.
[2024-10-09] MEDS ORDERED: Potassium Chl 20MEQ/Water100ML 100 ML IV SCH (07:45)
[2024-10-09] MEDS ORDERED: NITROFURANTOIN MACROCRYSTALS 50 MG PO SCH (09:00)
[2024-10-09] MEDS ORDERED: Metoprolol Succinate 25 MG TABCR PO SCH (09:00)
[2024-10-09] MEDS ORDERED: FLUoxetine HCL 20 MG CAP PO SCH (09:00)
[2024-10-09] MEDS ORDERED: Acetaminophen 325 MG TABLET PO PRN (09:00)
[2024-10-09] MEDS ORDERED: Folic Acid 1 MG TAB PO SCH (09:05)
[2024-10-09] MEDS ORDERED: Thiamine HCl 100 MG Tab PO SCH (09:05)
[2024-10-09] MEDS ORDERED: Potassium Chloride 20 MEQ TabCR PO ONE (09:05)
--- NOTE | 2024-10-09 15:03 | NUR ---
UPDATE: PT HAVING CONTINUAL FULL BODY TREMORS, STATING SHE COULD NOT MOVE OR RELAX HER BODY. ABLE TO TALK T/O EPISODE OF SHAKING. WAS VERY TEARFUL AND SCARED T/O SHAKING EPISODE. THIS RN AND GLORIA RN AT BEDSIDE DURING EPISODE. PT MEDICATED WITH 4 MG IV ATIVAN, PLACED ON 2L NC FOR COMFORT. PT ENCOURAGED TO DEEP BREATHE AND RELAX EXTREMETIES. PT WAS VERY STIFF IN FINGERS AND TOES. ABLE TO RELAX EXTREMETIES AND STOP SHAKING APPROXIMATELY 5 MINS AFTER IV ATIVAN ADMINISTERED. PT NOW STATES SHE FEELS MUCH BETTER AND IS MUCH MORE RELAXED. VITAL SIGNS STABLE T/O EPISODE OF SHAKING. HR 90-100, SBP 120'S, RR 14, SPO2 90'S. BED LOW AND LOCKED, CALL LIGHT IN REACH.
--- NOTE | 2024-10-09 16:53 | NUR ---
PT'S BELONGINGS BROUGHT OVER FROM [facility], PT WENT THROUGH HER BELONGINGS, THIS RN PRESENT. IN THE BOTTOM OF HER "PURSE" IS TWO UTILITY TYPE KNIVES. 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 THERE WERE NO IGNITION SOURCES PRESENT. MEDICATIONS AND CLOTHING PLACED IN BAGS ON THE SHELF IN THE ROOM, PT'S PHONE AND TEACHING SPECIALISTS ON HER BEDSIDE TABLE. SLIPPERS NEXT TO HER BED.
[2024-10-09 17:15] LABS: Magnesium, Blood 1.1 mg/dL (1.6-2.4); Phosphorus, Blood 3.8 mg/dL (2.5-4.9)
--- NOTE | 2024-10-09 18:36 | NUR ---
SHIFT SUMMARY: PT ALERT AND AWARE OF CURRENT SITUATION AT START OF SHIFT. SHE ASKED APPROPRIATE QUESTIONS AND WAS FRIENDLY AND COOPERATIVE. SHE HAD NO RECOLLECTION OF PAST 2 DAYS. THE DAY WENT ON PATIENT HAD INCREASED ANXIETY AND WOULD WAKE UP AND NOT REMEMBER EVENTS FROM TODAY. STILL VERY COOPERATIVE. HER BREATHING HAS BEEN UNLABORED. HYDRO ELECTRIC STATION OPERATOR SHOWS SINUS RHYTHM AT A NORMAL RATE. ONE PERIOD OF INCREASED ANXIETY SHOWED SINUS TACHYCARDIAC. SHE'S BEEN VERY TREMULOUS AND WEAK, BUT GETTING UP AND GOING TO THE CHAIR AND TOILET WITH ASSISTANCE. SHE HAS BEEN EATING ON HER OWN. PT HAS CHRONIC PAIN, BUT MANAGEABLE WITH TYLENOL AND HEATING PAD.
--- NOTE | 2024-10-09 20:35 | NUR ---
THIS RN ASSUMED CARE OF PT AT 1900. PT IS ALERT AND ORIENTED X3, STILL SLIGHTLY CONFUSED ABOUT THE SITUATION BUT IS FOLLOWING COMMANDS AND VERY REDIRECTABLE. PT SOUNDS CLEAR, SATTING >95% ON ROOM AIR, PT DENIES SHORTNESS OF BREATH. PT HEART RATE IS IN THE 80s, NORMAL SINUS, PT DENIES ANY CHEST PAIN AND BLOOD PRESSURE STABLE AT 119/74 WITH A MAP OF 89. PT DID HAVE A CIWA OF 9, PT WAS ANXIOUS, HAD TREMORS, CONFUSED AND A MILD HEADACHE, THIS RN DID GIVE SOME ATIVAN AND PT WAS ALSO GIVEN ZOFRAN. NO OTHER INTERVENTIONS AT THIS TIME. PLAN OF CARE CONTINUED.
[2024-10-10] VITALS (8 sets, daily range): BP systolic 122–130; BP diastolic 81–96
--- NOTE | 2024-10-10 04:07 | NUR ---
PT SUMMARY PT IS IN BED WATCHING TV. NO NEW EVENTS TO REPORT OVERNIGHT, PT IS ALERT AND ORIENTED, FOLLOWING COMMANDS AND STILL REDIRECTABLE. PT WILL BE TRANSFERING TO PCU 6. PLAN OF CARE CONTINUED.
[2024-10-10 04:24] LABS: Bun/Creatinine Ratio 21.1 (12.0-20.0); Calcium, Blood 9.3 mg/dL (8.5-10.1); Creatinine, Blood 0.57 mg/dL (0.40-1.00); Magnesium, Blood 1.4 mg/dL (1.6-2.4); Phosphorus, Blood 4.6 mg/dL (2.5-4.9); Potassium, Blood 3.8 mmol/L (3.5-5.5)
--- NOTE | 2024-10-10 04:47 | NUR ---
ASSUMPTION OF CARE THIS RN ASSUMED CARE OF THIS PATIENT AT 0445. PATIENT ALERT AND ORIENTED. ABLE TO APPROPRIATELY EXPRESS NEEDS. DENIES PAIN. DENIES HALLUCINATIONS. CIWA SCORE OF 1 UPON INITIAL ASSESSMENT. NO S/S DISTRESS AT THIS TIME.
[2024-10-10] MEDS ORDERED: Multivitamins/Minerals TAB PO SCH (09:00)
[2024-10-10] MEDS ORDERED: Thiamine HCl 100 MG Tab PO SCH (09:00)
[2024-10-10] MEDS ORDERED: Folic Acid 1 MG TAB PO SCH (09:00)
[2024-10-10] MEDS ORDERED: Mag Sulfate 1 GM/D5% 100ML 100 ML IV STA (09:40)
[2024-10-10] MEDS ORDERED: Folic Acid 1 MG TAB PO ONE (10:00)
[2024-10-10] MEDS ORDERED: Meclizine HCl 25 MG Tab PO ONE (10:00)
[2024-10-10] MEDS ORDERED: Lactated Ringer's 1,000 ML IV ONE (10:00)
[2024-10-10] MEDS ORDERED: Thiamine HCl 100 MG Tab PO ONE (10:00)
[2024-10-10] MEDS ORDERED: Hair, Skin & N1 EACH PO (16:48)
[2024-10-10] MEDS ORDERED: FOLI1 PO (16:48)
[2024-10-10] MEDS ORDERED: B-1100 M1 PO (16:49)
--- NOTE | 2024-10-10 18:01 | NUR ---
SHIFT SUMMARY PT DROWSY BUT EASILY AWAKENS TO VERBAL STIMULIM, ORIENTED X4, OBEYS COMMANDS, ABLE TO MAKE NEEDS KNOWN, HAS DELAYED/SLOW VERBAL RESPONSES. 1 PERSON ASSIST, BED ALARM IN PLACE PT NOT USING CALL LIGHT/ PT EDUCATED TO CALL FOR SAFETY AND THAT THEIR PRIVACY IN THE BATHROOM WOULD BE GIVEN BUT THEY ARE A BIT UNSTEAD ON THEIR FEET AND NEED TO HAVE SOMEONE PRESENT TO HELP THEM TO THE BATHROOM. CIWAA 9-15 THIS SHIFT, VISIBLE TREMORS/HEAD ACHE/ NAUSIA AND VOMITING/HR ELEVATED 100 S, NO HALLUNICANTIONS VISUAL OR AUDITORY, MEDICATED PER ORDERS/AFTER MEDICATING PT BECAMES MORE DROWSY BUT STILL ABLE TO RESPOND TO VERBAL COMMANDS. SPO2 GREATER THAN 90% ON RA, LUNGS SOUND CLEAR T/O. SNR-ST, HR 90-100 S, BP STABLE WITH MAP GREATER THAN 65, PREDAL AND RADIAL PULSES STRONG. PT REPORTING NAEUSA AT TIMES AND HAD EPISODE OF VOMITING THIS AFTERNOON AROUND 1300, MEDICATED PER ORDERS WITH ZOFAN/ PT REPORTS IMPROVED NAUSEA AND NO OTHER VOMITING. GISSELS RN AT BEDSIDE DURING DR. BETANCUR ROUNDS, PLAN OF CARE ONGOING POTENTIAL DC TO [facility] ATTEMPTED TO BE CONTACTED BY CARE MANAGEMENT, NO ANSWER AT THIS TIME. NOTIFIED OF INCREASED CIWAA @ 1337, DC TO [facility] PUT ON HOLD AT THIS TIME.
[2024-10-11 03:48] VITALS: BP 113/75
[2024-10-11 05:44] LABS: Bun/Creatinine Ratio 16.1 (12.0-20.0); Calcium, Blood 9.4 mg/dL (8.5-10.1); Creatinine, Blood 0.56 mg/dL (0.40-1.00); Magnesium, Blood 1.6 mg/dL (1.6-2.4); Phosphorus, Blood 4.7 mg/dL (2.5-4.9); Potassium, Blood 3.6 mmol/L (3.5-5.5)
[2024-10-11 08:05] VITALS: BP 111/83
[2024-10-11] MEDS ORDERED: LORazepam 2 MG/ML 1ML Injection IV PRN (10:35)
[2024-10-11] MEDS ORDERED: LORazepam 1 MG Tab PO PRN (10:35)
[2024-10-11 11:46] VITALS: BP 115/76
[2024-10-11 15:36] VITALS: BP 114/86
--- NOTE | 2024-10-11 18:16 | NUR ---
SHIFT SUMMARY; ASSUMED CARE AT 0700. A/A/OX3 DURING SHIFT. CIWA MEDS PER EMAR PRN. VSS. WALKS WITH WALKER IN AM TO OUT IN HALLWAY, UNSTEADY ON FEET. REQUESTS WHEEL CHAIR BACK TO ROOM. CALLED TO ROOM IN AFTERNOON BY ANOTHER STAFF MEMBER WHO WAS WITH PT. STATES SLUMPED OVER WHILE TALKING AND STOPPED RESPONDING. SITTING ON SIDE OF BED WHEN I ARRIVED SLUMPED OVER. DOES NOT ANSWER QUESTIONS OR FOLLOW INSTRUCTIONS. PLACED BACK IN BED SUPINE WITH BENEFITS ANALYST. VSS. AFTER SEVERAL MINUTES APPEARS TO UNDERSTAND THIS RN WHEN SPOKEN TO. EVENTUALLY IS ABLE TO SAY NAME BUT UNABLE TO STATE WHERE SHE IS. APPEARS POSTICAL, REMAINS CONFUSED FOR SEVERAL MINUTES AND FEELS SEVERELY NAUSEATED. ROLLS TO SIDE WITH HELP OF BENEFITS ANALYST, EMESIS BAG GIVEN. NO EMESIS AT THIS TIME. MEDICATED WITH ZOFRAN AND 2MG IVP ATIVAN. TELEPHONE CALL TO DR. EVANS TO UPDATE ON THE EVENT. WILL CONTINUE TO CLOSELY MONITOR AND TREAT. IN EVENING STATES IS FEELING MUCH BETTER, SITS UP IN BED AND EATS DINNER. WILL CONTINUE CIWA MEDS PER EMAR AND WILL CONTINUE TO MONITOR UNTIL CHANGE OF SHIFT.
[2024-10-11 19:49] VITALS: BP 118/80
[2024-10-12 00:10] VITALS: BP 120/85
[2024-10-12 04:06] VITALS: BP 108/70
--- NOTE | 2024-10-12 05:20 | NUR ---
PT REMAINS A&OX4. VSS ON RA. PT GIVEN ONLY ONE PO DOSE OF LIBRIUM BEFORE GOING TO SLEEP ALONG WITH ZOFRAN DUE TO INTERMITTANT NAUSEA. PT SLEPT THROUGHOUT THE ENITRE NIGHT WITH NO ISSUES. PT SCORING BELOW AN 8 ON CIWA ALL NIGHT. PT CONTINUES TO BE ON TELE. NO CHEST PAIN. NSR IN 70s. NO FURTHER QUESTIONS OR CONCERNS AT THIS TIME. BED ALARM REMAINS ON WITH CALL LIGHT WITHIN REACH.
[2024-10-12 08:28] VITALS: BP 111/77
[2024-10-12 12:08] VITALS: BP 117/86
[2024-10-12 16:26] VITALS: BP 102/62
--- NOTE | 2024-10-12 18:11 | NUR ---
SHIFT SUMMARY A&OX4, OBEYS COMMANDS, ABLE TO MAKE NEEDS KNOWN, HAS DELAYED/SLOW VERBAL RESPONSES. 1 PERSON ASSIST WITH FWW/ PT EDUCATED TO CALL FOR SAFETY. CIWAA 2-9 THIS SHIFT, VISIBLE TREMORS/HEAD ACHE/ NAUSIA, NO HALLUNICANTIONS VISUAL OR AUDITORY, MEDICATED PER ORDERS/AFTER MEDICATING PT WITH LIBRIUM PT BECAMES MORE DROWSY BUT STILL ABLE TO RESPOND TO VERBAL COMMANDS. SPO2 GREATER THAN 90% ON RA, LUNGS SOUND CLEAR T/O. SNR, HR 70 S, BP STABLE WITH MAP GREATER THAN 65, PREDAL AND RADIAL PULSES STRONG. PT REPORTING NAEUSA AT TIMES. PT AMBULATED INTO HALLWAY TO A WITH FWW THIS AM.
[2024-10-12 19:27] VITALS: BP 131/85
[2024-10-13 04:17] VITALS: BP 93/62
--- NOTE | 2024-10-13 05:43 | NUR ---
SHIFT SUMMARY A/Ox4 AND COOPERATIVE WITH CARE. ANSWERS QUESTIONS APPROPRIATELY AND ABLE TO MAKE HER NEEDS KNOWN. CIWA HAS BEEN VERY MINIMAL T/O THE SHIFT, MEDICATED PER EMAR. SEE CIWA ASSESSMENTS FOR DETAILS. NO ACUTE EVENTS OVERNIGHT. CARDIAC, REMAINS IN SR 70 WITH SBP 90-130'S. DENIES ANY CP, PRESSURE OR DIZZINESS. RESPIRATORY, MAINTAINS SPO2 >93% ON RA WITH NO REPORTS OF SOB OR DYSPNEA. GI/, ABLE TO WALK TO BATHROOM WITH FWW WITH SBA. DENIES N/V/D OR ABD PAIN. POTENTIAL D/C THIS AM. NO NEW ORDERS AT THIS TIME, WILL REPORT TO ONCOMING RN. YASMIN OBRIEN OF THIS NOTE.
[2024-10-13 08:41] VITALS: BP 97/74
--- NOTE | 2024-10-13 14:23 | NUR ---
DISCHARGE SUMMARY PT A&OX4. VSS. IVS REMOVED. TELEMETRY REMOVED. PT REQUESTED LIST OF MEDICATIONS GIVEN WHILE IN THE HOSPITAL. PT GIVEN INFORMATION ON CREATING ACCOUNT ON PATIENT PORTAL TO VIEW/REQUEST DOCUMENTS. DISCHARGE MEDICATIONS AND PAPERWORK REVIEWED W/ PT. [facility] ARRIVED APPROX 1415. PT WHEELED OUT W/ PERSONAL BELONGINGS AND PERSONAL WALKER TO [facility].
== END 2024-10-13 14:21 | disposition home or self-care (01) | DRG 897 ==
LOC: ER 13:47 → ICUE 16:18 → PCU 16:18 → ERHOLD 16:18 → ICUE 21:32 → PCU 10-10 04:34
PROVIDERS: Family Medicine; Student in an Organized Health Care Education/Training Program; ADMIT Internal Medicine
PROC: HZ2ZZZZ Detoxification Services for Substance Abuse Treatment (ICD-10-PCS; principal; 2024-10-07)
DX: F10.239 Alcohol dependence with withdrawal, unspecified (principal); F05 Delirium due to known physiological condition; E44.0 Moderate protein-calorie malnutrition; Z68.1 Body mass index [BMI] 19.9 or less, adult; N39.0 Urinary tract infection, site not specified; E87.6 Hypokalemia; E83.42 Hypomagnesemia; J44.9 Chronic obstructive pulmonary disease, unspecified; E86.0 Dehydration; Z87.440 Personal history of urinary (tract) infections; F41.8 Other specified anxiety disorders; E88.09 Other disorders of plasma-protein metabolism, not elsewhere classified; M54.9 Dorsalgia, unspecified; G89.29 Other chronic pain; G56.00 Carpal tunnel syndrome, unspecified upper limb; Z98.890 Other specified postprocedural states; Z88.0 Allergy status to penicillin; Z88.2 Allergy status to sulfonamides; Z88.8 Allergy status to other drugs, medicaments and biological substances; Z87.891 Personal history of nicotine dependence
CPT/HCPCS: 36415; 80048; 80053; 80320; 81003; 83735; 84100; 84703; 85025; 85027; 93005; 93010; 96374; 96376; 97116; 97162; 99285-25; A9270; J0360; J1650; J2060; J2405; J3411; J3475; J3480; J7120

== ENCOUNTER 2024-10-30 21:11 | Emergency (ER) | payer OTHER ==
[~2024-10-30] VITALS: Ht 170.2 cm; Wt 50.8 kg
[~2024-10-30 21:11] MED LIST changes: +B-1100 M1 PO; +FOLI1 PO; +Hair, Skin & N1 EACH PO; +NITROFURANTOIN5012 PO
[2024-10-30 21:18] VITALS: BP 137/93
[2024-10-30 21:42] LABS: BASOPHILS ABSOLUTE AUTO 0.06 K/mm3 (0.00-0.23); BASOPHILS PERCENT AUTO 1 % (0-2); EOSINOPHILS ABSOLUTE AUTO 0.24 K/mm3 (0.00-0.68); EOSINOPHILS PERCENT AUTO 3 % (0-6); Hemoglobin 11.4 g/dL (11.5-16.0); IMMATURE GRAN ABSOLUTE AUTO 0.03 K/mm3 (0.00-0.10); IMMATURE GRAN PERCENT AUTO 0 % (0-1); LYMPHOCYTES ABSOLUTE AUTO 2.24 K/mm3 (0.84-5.20); LYMPHOCYTES PERCENT AUTO 25 % (21-46); MONOCYTES ABSOLUTE AUTO 0.83 K/mm3 (0.16-1.47); MONOCYTES PERCENT AUTO 9 % (4-13); Mean Corpuscular HGB 32.5 pg (26.0-34.0); Mean Corpuscular HGB Conc 34.5 g/dL (31.5-36.5); Mean Corpuscular Volume 94 fL (80-100); Mean Platelet Volume 8.7 fL (9.1-12.4); NEUTROPHILS PERCENT AUTO 63 % (41-73); Platelet Count 344 K/mm3 (150-400); RDW Coefficient Variation 12.2 % (11.7-14.2); RDW Standard Deviation 42.3 fL (35.1-46.3); Red Blood Cell Count 3.51 M/mm3 (3.80-5.20)
[2024-10-30 22:02] LABS: Albumin, Blood 3.5 g/dL (3.4-5.0); Albumin/Globulin Ratio 0.9 (0.8-1.8); Bilirubin, Total 0.4 mg/dL (0.1-1.0); Calcium, Blood 9.2 mg/dL (8.5-10.1); Creatinine, Blood 0.5 mg/dL (0.40-1.00); Globulin, Blood 3.7 g/dL (2.2-4.0); Potassium, Blood 3.9 mmol/L (3.5-5.5); Total Protein, Blood 7.2 g/dL (6.4-8.2)
[2024-10-30 23:19] LABS: Source, Urine Clean Catch
[2024-10-30 23:24] LABS: Bilirubin, Urine Neg (Neg); Blood, Urine Neg (Neg); Glucose Qualitative, Urine Neg (Neg); Ketones, Urine Neg (Neg); Leukocyte Esterase, Urine Neg (Neg); Nitrite, Urine Neg (Neg); Protein, Urine Neg (Neg); Urobilinogen, Urine NORM (Normal)
[2024-10-30 23:30] LABS: Appearance, Urine Clear (Clear); Color, Urine Yellow (P-Yellow)
== END 2024-10-30 23:57 | disposition home or self-care (01) ==
LOC: ER 21:11
PROVIDERS: Student in an Organized Health Care Education/Training Program
DX: R56.9 Unspecified convulsions (principal); F17.210 Nicotine dependence, cigarettes, uncomplicated; Z88.0 Allergy status to penicillin; Z88.2 Allergy status to sulfonamides; Z88.8 Allergy status to other drugs, medicaments and biological substances; Z79.899 Other long term (current) drug therapy
CPT/HCPCS: 80053; 81003; 85025; 93005; 93010; 99284-25

== ENCOUNTER 2025-05-09 06:21 | Day surgery (SDC) | payer OTHER ==
[~2025-05-09] VITALS: Ht 170.2 cm; Wt 52.8 kg
[~2025-05-09 06:21] MED LIST changes: +FentaNYL Citrate 50 MCG/ML 2 ML Injection ONE; +Ketorolac Tromethamine 30mg Vial ONE; +Lidocaine 1%-Epineph 1:100000 20 ML MDV ONE; +Midazolam HCl 1MG / ML 2ML Vial ONE; +NS 500 ML IV ONE; +Sodium Bicarb 8.4% 1 MEQ/ML 50 ML Vial ONE
[2025-05-09] MEDS ORDERED: CeFAZolin Sodium 2,000 MG VIAL ONE (06:32)
[2025-05-09] MEDS ORDERED: NS 100 ML IV ONE (06:32)
[2025-05-09] MEDS ORDERED: NS 500 ML IV ONE (06:39)
[2025-05-09] MEDS ORDERED: Acetaminophen650 M1 PO (06:41)
[2025-05-09] MEDS ORDERED: DIAZEPAM2 M2 PO (06:42)
[2025-05-09] MEDS ORDERED: ALBU90OI INH (06:42)
[2025-05-09] MEDS ORDERED: NEURONTIN300 MG PO (06:43)
[2025-05-09] MEDS ORDERED: CYMBALTA20 M2 PO (06:43)
[2025-05-09] MEDS ORDERED: Hydroxyzine HCl50 MG (06:44)
[2025-05-09] MEDS ORDERED: Methocarbamol500 MG PO (06:44)
[2025-05-09] MEDS ORDERED: MELO7.5 PO (06:45)
[2025-05-09] MEDS ORDERED: Naltrexone HCl50 MG PO (06:45)
[2025-05-09] MEDS ORDERED: TRAZ50 PO (06:45)
[2025-05-09] MEDS ORDERED: B-1100 MG PO (06:45)
--- NOTE | 2025-05-09 07:13 | NUR ---
05/09/25 0713 Devora Lomeli TIME OUT PERFORMED AT BEDSIDE WITH DR HARRELL AT 0710 IMMEDIATELY PRIOR TO INJECTION OF 10ML OF SOLUTION CONSISTING OF 1ML 8.4% SODIUM BICARBONATE AND 9ML 1% LIDOCAINE WITH EPI [id number] INTO R HAND. PT TOLERATED PROCEDURE WITHOUT ANY DIFFICULTIES.
[2025-05-09 07:43] VITALS: BP 126/87
--- NOTE | 2025-05-09 08:15 | NUR ---
05/09/25 0815 Jeff Gallegos PT DENIES PAIN AND NAUSEA. PT AGREEABLE TO D/C HOME.
== END 2025-05-09 08:12 | disposition home or self-care (01) ==
LOC: ORSCSDS 06:21
PROVIDERS: Orthopaedic Surgery
PROC: 01N54ZZ Release Median Nerve, Percutaneous Endoscopic Approach (ICD-10-PCS; principal; 2025-05-09 07:30)
DX: G56.03 Carpal tunnel syndrome, bilateral upper limbs (principal); Z87.891 Personal history of nicotine dependence; Z79.899 Other long term (current) drug therapy
CPT/HCPCS: J0690; J1885; J2250; J3010; J7040

== ENCOUNTER → 2025-06-19 | Outpatient (CLI) | payer OTHER ==
[~2025-06-19] MED LIST changes: +ALBU90OI INH; +Acetaminophen650 M1 PO; +B-1100 MG PO; +CYMBALTA20 M2 PO; +DIAZEPAM2 M2 PO; -FentaNYL Citrate 50 MCG/ML 2 ML Injection ONE; +Hydroxyzine HCl50 MG; -Ketorolac Tromethamine 30mg Vial ONE; -Lidocaine 1%-Epineph 1:100000 20 ML MDV ONE; +MELO7.5 PO; +Methocarbamol500 MG PO; -Midazolam HCl 1MG / ML 2ML Vial ONE; +NEURONTIN300 MG PO; -NS 500 ML IV ONE; +Naltrexone HCl50 MG PO; -Sodium Bicarb 8.4% 1 MEQ/ML 50 ML Vial ONE; +TRAZ50 PO
[2025-06-23 14:05] LABS: Stool Occult Bld Immuno 1 Negative (NEGATIVE)
[2025-06-26 17:18] LABS: CALPROTECTIN,FECAL 168 ug/g (<=49)
== END | disposition home or self-care (01) ==
LOC: LAB 13:00 → LAB SHORT 13:00
PROVIDERS: Family Medicine
DX: D50.9 Iron deficiency anemia, unspecified (principal); R10.30 Lower abdominal pain, unspecified
CPT/HCPCS: 83993; G0328

== ENCOUNTER 2025-09-04 15:23 | Emergency (ER) | payer OTHER ==
[~2025-09-04] VITALS: Ht 165.1 cm; Wt 56.7 kg
[2025-09-04] MEDS ORDERED: Ondansetron HCl 2 MG / ML 2ML Vial IV ONE (15:50)
[2025-09-04 16:03] LABS: BASOPHILS ABSOLUTE AUTO 0.05 K/mm3 (0.00-0.23); BASOPHILS PERCENT AUTO 1 % (0-2); EOSINOPHILS ABSOLUTE AUTO 0.04 K/mm3 (0.00-0.68); EOSINOPHILS PERCENT AUTO 1 % (0-6); Hematocrit 36.4 % (33.0-51.0); Hemoglobin 12.4 g/dL (11.5-16.0); IMMATURE GRAN ABSOLUTE AUTO 0.03 K/mm3 (0.00-0.10); IMMATURE GRAN PERCENT AUTO 0 % (0-1); LYMPHOCYTES ABSOLUTE AUTO 2.82 K/mm3 (0.84-5.20); LYMPHOCYTES PERCENT AUTO 34 % (21-46); MONOCYTES ABSOLUTE AUTO 0.45 K/mm3 (0.16-1.47); MONOCYTES PERCENT AUTO 5 % (4-13); Mean Corpuscular HGB Conc 34.1 g/dL (31.5-36.5); Mean Corpuscular Volume 86 fL (80-100); NEUTROPHILS ABSOLUTE AUTO 4.94 K/mm3 (1.96-9.15); NEUTROPHILS PERCENT AUTO 59 % (41-73); NRBC ABSOLUTE 0.00 K/mm3 (0.00-0.02); NRBC Auto 0.0 /100 WBC (0.0-0.2); Platelet Count 345 K/mm3 (150-400); RDW Coefficient Variation 14.1 % (11.7-14.2); RDW Standard Deviation 44.9 fL (35.1-46.3)
[2025-09-04] MEDS ORDERED: NS 1,000 ML IV SCH (16:05)
[2025-09-04 16:15] LABS: Alanine Aminotransfer (ALT/SGP 32.0 U/L (12-78); Albumin, Blood 4.3 g/dL (3.4-5.0); Albumin/Globulin Ratio 1.1 (0.8-1.8); Anion Gap 11.0 mmol/L (3-11); Aspartate Aminotrans (AST/SGOT 19.0 U/L (12-37); Bilirubin, Total 0.2 mg/dL (0.1-1.0); Blood Urea Nitrogen 20.0 mg/dL (8-24); CO2, Blood 25.0 mmol/L (21-32); Calcium, Blood 9.5 mg/dL (8.5-10.1); Chloride, Blood 108.0 mmol/L (98-108); Creatinine, Blood 0.56 mg/dL (0.40-1.00); Ethanol (Alcohol), Blood, Med 279.0 mg/dL; Globulin, Blood 4.0 g/dL (2.2-4.0); Glucose, Blood 107.0 mg/dL (70-99); Potassium, Blood 4.1 mmol/L (3.5-5.5); Sodium, Blood 140.0 mmol/L (136-145); Total Protein, Blood 8.3 g/dL (6.4-8.2)
[2025-09-04 17:19] LABS: U Amphetamine Screen Not Detected; U Barbiturate Screen Not Detected; U Benzodiazapine Screen Not Detected; U Buprenorphine Screen Not Detected; U Cannabinoids Screen Not Detected; U Cocaine Screen Not Detected; U Methadone Screen Not Detected; U Methamphetamine Screen Not Detected; U Opiates Screen Not Detected; U Oxycodone Screen Not Detected; U Phencyclidine Screen Not Detected
[2025-09-04 17:30] VITALS: BP 132/87
== END 2025-09-04 18:04 | disposition home or self-care (01) ==
LOC: ER 15:23
PROVIDERS: Student in an Organized Health Care Education/Training Program
DX: M54.2 Cervicalgia (principal); W11.XXXA Fall on and from ladder, initial encounter; F17.210 Nicotine dependence, cigarettes, uncomplicated; Z88.8 Allergy status to other drugs, medicaments and biological substances; Z88.2 Allergy status to sulfonamides; Z88.0 Allergy status to penicillin; Z79.899 Other long term (current) drug therapy
CPT/HCPCS: 70450; 71045; 72125; 73590; 73610; 73630; 74177; 80053; 80320; 83690; 85025; 86850; 86900; 86901; 93005; 93010; 96361; 96374-59; 99284-25; J2405; J7030; Q9967